=== PATIENT | female | born 1970 | race Two or more races ===

== ENCOUNTER 2018-07-18 13:37 | Emergency (ER) | payer BC ==
[~2018-07-18] VITALS: Ht 182.9 cm; Wt 103.5 kg
[2018-07-18 13:45] VITALS: BP 124/85
--- NOTE | 2018-07-18 13:53 | NUR ---
TASK RN: PT AMBULATORY WITH STEADY GAIT TO ROOM
--- NOTE | 2018-07-18 13:53 | NUR ---
Shilpa franz in [facility] - 07/18/18 at 1353 by KAMERON TASK RN: VALENTE LARIOS T
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
[2018-07-18] MEDS ORDERED: HYDROmorphone 1 MG/ML, 1ML ONE (14:18)
[2018-07-18] MEDS ORDERED: ONDANSETRON 2MG/ML, 2ML ONE (14:18)
--- NOTE | 2018-07-18 14:26 | NUR ---
PT TO MRI, SENT WITH URINE CUP
--- NOTE | 2018-07-18 14:27 | NUR ---
TASK RN: PIV ESTABLISHED. PT TOLERATED WITH NO COMPLICATIONS.
--- NOTE | 2018-07-18 14:28 | NUR ---
TASK RN: BEDSIDE REPORT TO MICHELLE SAUCEDO.
[2018-07-18] MEDS ORDERED: ONDANSETRON 2MG/ML, 2ML IVPush ONE (14:30)
[2018-07-18] MEDS ORDERED: HYDROmorphone 1 MG/ML, 1ML IV ONE (14:30)
[2018-07-18 15:19] LABS: HCG UR SG 1.036 (1.003-1.030); MICROSCOPIC NOT IND
[2018-07-18 15:26] LABS: CULTURE INDICATED? NO
== END 2018-07-18 16:48 | disposition home or self-care (01) ==
LOC: ED 15:42
DX: S39.012A Strain of muscle, fascia and tendon of lower back, initial encounter (principal); G89.11 Acute pain due to trauma; M54.42 Lumbago with sciatica, left side; G43.909 Migraine, unspecified, not intractable, without status migrainosus; R32 Unspecified urinary incontinence; V49.49XA Driver injured in collision with other motor vehicles in traffic accident, initial encounter; Y93.89 Activity, other specified; Y92.89 Other specified places as the place of occurrence of the external cause; Y99.8 Other external cause status
CPT/HCPCS: 71045; 72148; 81003; 81025; 96374; 96375; 99284; J1170; J2405

== ENCOUNTER 2018-09-06 19:58 | Inpatient (IN) | payer BC ==
[~2018-09-06] VITALS: Ht 180.3 cm; Wt 106.8 kg
[2018-09-06] MEDS ORDERED: BACL20TA PO (20:34)
[2018-09-06] MEDS ORDERED: AMIT10TA PO (20:34)
[2018-09-06] MEDS ORDERED: GABA300C10 PO (20:34)
[2018-09-06] MEDS ORDERED: ONDANSETRON 2MG/ML, 2ML IVPush ONE ×2 (21:00→23:00)
[2018-09-06] MEDS ORDERED: ACETAMINOPHEN 500 MG TABLET PO ONE (21:00)
[2018-09-06] MEDS ORDERED: ACETAMINOPHEN 500 MG TABLET ONE (21:02)
[2018-09-06] MEDS ORDERED: ONDANSETRON 2MG/ML, 2ML ONE ×2 (21:02→22:57)
[2018-09-06] MEDS ORDERED: MORPHINE SULFATE 4 MG/ML, 1ML ONE ×2 (21:02→22:58)
[2018-09-06 21:05] LABS: MEAN CORPUSCULAR HEMOGLOBIN 21.7 pg (27.0-34.8); MEAN CORPUSCULAR VOLUME 70.1 fL (80-100); MEAN PLATELET VOLUME 9.9 fL (7.4-10.4); PLATELET COUNT 270 x10^3/uL (130-400); RED BLOOD COUNT 4.43 x10^6/uL (3.82-5.3); RED CELL DISTRIBUTION WIDTH 18.6 % (9.6-15.2)
[2018-09-06] MEDS: MORPHINE SULFATE 4 MG/ML, 1ML IVPush PRN ×2 (21:06→23:00)
[2018-09-06] MEDS ORDERED: NITR100C PO (21:11)
[2018-09-06] MEDS ORDERED: PHEN-583 PO (21:11)
--- NOTE | 2018-09-06 21:16 | NUR ---
PT TO ED FOR LEFT ABD PAIN RAD TO LEFT FLANK WITH HOME TEMP UP TO 103F X4 DAYS. PT HAS HX OR SPINAL INJURY WITH URINARY RETENTION AND INCONTINENCE. CONNECTED TO MONITORS. VSS. EDMD PRESENT FOR EXAM AND ORDERS RECEIVED. IV ESTABLISHED. LABS DRAWN AND SENT. PRE VOID BLADDER SCAN 396ML. POST VOID BLADDER SCAN 195ML. UA COLELCTED VIA CLEAN CATCH AND SENT. PT MEDICATED PER JUL. NEW ORDERS RECEIVED FOR BC X2. LAB AT [facility] AT THIS TIME FOR DRAW. AWAITING CT.
[2018-09-06 21:17] LABS: ALANINE AMINOTRANSFERASE 24 U/L (12-78); ALBUMIN 3.2 g/dL (3.4-5.0); ANION GAP 10 mmol/L (5-15); CALCIUM 8.3 mg/dL (8.5-10.1); CHLORIDE 104 mmol/L (98-107)
[2018-09-06 21:20] LABS: ALKALINE PHOSPHATASE 89 U/L (45-117); BILIRUBIN,TOTAL 0.5 mg/dL (0.2-1.0); CREATININE 0.89 mg/dL (0.55-1.02); TOTAL PROTEIN 7.8 g/dL (6.4-8.2)
[2018-09-06 21:21] LABS: BASOPHILS % (AUTO) 0 % (0-1); EOSINOPHILS # (AUTO) 0.05 x10^3/uL (0-0.4); EOSINOPHILS % (AUTO) 0 % (1-7); LYMPHOCYTES # (AUTO) 0.87 x10^3/uL (1-3.4); LYMPHOCYTES % (AUTO) 5 % (22-44); MD SCAN; MONOCYTES # (AUTO) 1.02 x10^3/uL (0.2-0.8); MONOCYTES % (AUTO) 6 % (2-9); NEUTROPHILS # (AUTO) 15.68 x10^3/uL (1.8-6.8); NEUTROPHILS % (AUTO) 89 % (42-75)
[2018-09-06] MEDS ORDERED: CEFTRIAXONE PMX 2GM/50ML 50 ML IV SCH (21:30)
[2018-09-06 21:36] LABS: MICROSCOPIC INDICATED
[2018-09-06 21:37] LABS: CULTURE INDICATED? YES
--- NOTE | 2018-09-06 21:46 | NUR ---
PT TO CT AT THIS TIME.
[2018-09-06] MEDS ORDERED: CEFTRIAXONE PMX 2GM/50ML 50 ML ONE (21:52)
[2018-09-06] MEDS ORDERED: OMNIPAQUE 350 MG/ML, 100ML BOTTLE ONE (22:08)
--- NOTE | 2018-09-06 22:26 | NUR ---
POC DISCUSSED. VITALS UPDATED. PT RATES HER PAIN 11/18 HOWEVER DECLINES MORPHINE AT THIS TIME. PT AWARE IT IS ORDERED IF SHE NEEDS IT. CALL LIGHT ON LAP.
[2018-09-06] MEDS ORDERED: KETOROLAC 30 MG/1 ML ONE (22:57)
[2018-09-06] MEDS ORDERED: KETOROLAC 30 MG/1 ML IVPush ONE (23:00)
--- NOTE | 2018-09-06 23:07 | NUR ---
PT MEDICATED PER JUL. POC DISCUSSED. PT AGREES TO PLAN FOR ADMISSION. PT GIVEN CUP OF WATER. PT DENIES FURTHER NEEDS AT THIS TIME.
--- NOTE | 2018-09-06 23:15 | NUR ---
[facility] OKAYS ICE CHIPS BUT NOTHING MORE. PT GIVEN ICE CHIPS. POC DISCUSSED. PT DENIES FURTHER NEEDS AT THIS TIME.
[2018-09-07] VITALS (7 sets, daily range): BP systolic 100–123; BP diastolic 55–70
[2018-09-07] MEDS ORDERED: LABETALOL 5MG/ML, 20ML IVPush PRN (00:30)
[2018-09-07] MEDS ORDERED: HYDROmorphone 2 MG/ML, 1ML IVPush PRN (00:30)
[2018-09-07] MEDS ORDERED: POLYETHYLENE GLYCOL 17 GM PACKET PO PRN (00:30)
[2018-09-07] MEDS: LACTATED RINGERS 1,000 ML IV SCH ×3 (00:59→20:51)
[2018-09-07] MEDS: ENOXAPARIN 40 MG/0.4 ML SQ SCH ×2 (00:59→23:09)
[2018-09-07] MEDS: OXYcodone/APAP 5/325MG TABLET PO PRN ×5 (00:59→19:53)
[2018-09-07 05:50] LABS: BASOPHILS % (AUTO) 0 % (0-1); EOSINOPHILS # (AUTO) 0.08 x10^3/uL (0-0.4); EOSINOPHILS % (AUTO) 1 % (1-7); LYMPHOCYTES # (AUTO) 1.61 x10^3/uL (1-3.4); LYMPHOCYTES % (AUTO) 10 % (22-44); MD NO; MEAN CORPUSCULAR HEMOGLOBIN 22.2 pg (27.0-34.8); MEAN CORPUSCULAR HGB CONC 31.3 g/dL (32.4-35.8); MEAN PLATELET VOLUME 10.2 fL (7.4-10.4); MONOCYTES # (AUTO) 0.56 x10^3/uL (0.2-0.8); MONOCYTES % (AUTO) 4 % (2-9); NEUTROPHILS % (AUTO) 86 % (42-75); PLATELET COUNT 232 x10^3/uL (130-400); RED BLOOD COUNT 4.36 x10^6/uL (3.82-5.3); RED CELL DISTRIBUTION WIDTH 18.6 % (9.6-15.2)
[2018-09-07] MEDS: ONDANSETRON 2MG/ML, 2ML IVPush PRN (06:05)
[2018-09-07] MEDS: KETOROLAC 30 MG/1 ML IV PRN ×2 (06:05→18:38)
[2018-09-07 06:08] LABS: ANION GAP 10 mmol/L (5-15); CALCIUM 8.4 mg/dL (8.5-10.1); CHLORIDE 105 mmol/L (98-107)
[2018-09-07 06:11] LABS: CREATININE 0.88 mg/dL (0.55-1.02)
[2018-09-07] MEDS: SENNA/DOCUSATE TABLET PO SCH (08:13)
[2018-09-07] MEDS: ACETAMINOPHEN 325 MG TABLET PO PRN (12:23)
[2018-09-07] MEDS: IBUPROFEN 200 MG TABLET PO PRN (17:29)
[2018-09-07] MEDS ORDERED: SODIUM CHLORIDE 0.9% 1,000ML IVBOLUS ONE (17:30)
[2018-09-07] MEDS: CEFTRIAXONE PMX 2GM/50ML 50 ML IV SCH (22:14)
[2018-09-08] MEDS: IBUPROFEN 200 MG TABLET PO PRN ×2 (01:10→13:11)
[2018-09-08 01:26] VITALS: BP 95/56
[2018-09-08] MEDS: ACETAMINOPHEN 325 MG TABLET PO PRN (02:10)
[2018-09-08] MEDS: ONDANSETRON 2MG/ML, 2ML IVPush PRN (04:34)
[2018-09-08] MEDS: OXYcodone/APAP 5/325MG TABLET PO PRN ×5 (04:34→23:56)
[2018-09-08 07:53] VITALS: BP_SYST 87; BP_SYST 96; BP_DIAS 50; BP_DIAS 60
[2018-09-08 08:48] LABS: BASOPHILS # (AUTO) 0.03 x10^3/uL (0-0.1); BASOPHILS % (AUTO) 0 % (0-1); EOSINOPHILS # (AUTO) 0.08 x10^3/uL (0-0.4); EOSINOPHILS % (AUTO) 1 % (1-7); LYMPHOCYTES # (AUTO) 1.46 x10^3/uL (1-3.4); LYMPHOCYTES % (AUTO) 14 % (22-44); MD NO; MEAN CORPUSCULAR HEMOGLOBIN 21.9 pg (27.0-34.8); MEAN CORPUSCULAR HGB CONC 31.2 g/dL (32.4-35.8); MEAN CORPUSCULAR VOLUME 70.4 fL (80-100); MEAN PLATELET VOLUME 9.8 fL (7.4-10.4); MONOCYTES # (AUTO) 0.69 x10^3/uL (0.2-0.8); MONOCYTES % (AUTO) 7 % (2-9); NEUTROPHILS # (AUTO) 7.93 x10^3/uL (1.8-6.8); NEUTROPHILS % (AUTO) 78 % (42-75); PLATELET COUNT 219 x10^3/uL (130-400); RED BLOOD COUNT 3.72 x10^6/uL (3.82-5.3); RED CELL DISTRIBUTION WIDTH 19.2 % (9.6-15.2)
[2018-09-08] MEDS: SENNA/DOCUSATE TABLET PO SCH (08:52)
[2018-09-08] MEDS: BACLOFEN 10 MG TABLET PO PRN ×2 (08:52→16:31)
[2018-09-08] MEDS: SODIUM CHLORIDE 0.9% 1,000 ML IV SCH ×3 (08:54→23:25)
[2018-09-08 08:55] LABS: ALBUMIN 2.5 g/dL (3.4-5.0); ANION GAP 7 mmol/L (5-15); CALCIUM 8.3 mg/dL (8.5-10.1); CHLORIDE 108 mmol/L (98-107)
[2018-09-08 08:59] LABS: ALANINE AMINOTRANSFERASE 22 U/L (12-78); ALKALINE PHOSPHATASE 98 U/L (45-117); BILIRUBIN,TOTAL 0.2 mg/dL (0.2-1.0); CREATININE 0.77 mg/dL (0.55-1.02); TOTAL PROTEIN 6.5 g/dL (6.4-8.2)
[2018-09-08] MEDS ORDERED: SODIUM CHLORIDE 0.9% 1,000ML IVBOLUS ONE (09:00)
[2018-09-08] MEDS ORDERED: DIPHENHYDRAMINE 50 MG/ML, 1ML IVPush PRN (09:00)
[2018-09-08] MEDS ORDERED: METOCLOPRAMIDE 5 MG/ML, 2ML IVPush PRN (09:00)
[2018-09-08] MEDS: GABAPENTIN 300 MG CAPSULE PO SCH ×3 (10:09→21:13)
[2018-09-08 12:36] VITALS: BP 111/72
[2018-09-08 20:15] VITALS: BP 109/66
[2018-09-08] MEDS: AMITRIPTYLINE 10 MG TABLET PO SCH (21:13)
[2018-09-08] MEDS: CEFTRIAXONE PMX 2GM/50ML 50 ML IV SCH (22:26)
[2018-09-08] MEDS: ENOXAPARIN 40 MG/0.4 ML SQ SCH (22:26)
[2018-09-09 00:44] VITALS: BP 107/66
[2018-09-09 05:24] LABS: BASOPHILS # (AUTO) 0.05 x10^3/uL (0-0.1); BASOPHILS % (AUTO) 1 % (0-1); EOSINOPHILS # (AUTO) 0.14 x10^3/uL (0-0.4); EOSINOPHILS % (AUTO) 2 % (1-7); LYMPHOCYTES # (AUTO) 1.33 x10^3/uL (1-3.4); LYMPHOCYTES % (AUTO) 15 % (22-44); MD NO; MEAN CORPUSCULAR HEMOGLOBIN 21.7 pg (27.0-34.8); MEAN CORPUSCULAR HGB CONC 30.9 g/dL (32.4-35.8); MEAN CORPUSCULAR VOLUME 70.1 fL (80-100); MEAN PLATELET VOLUME 9.7 fL (7.4-10.4); MONOCYTES # (AUTO) 0.66 x10^3/uL (0.2-0.8); MONOCYTES % (AUTO) 8 % (2-9); NEUTROPHILS # (AUTO) 6.56 x10^3/uL (1.8-6.8); NEUTROPHILS % (AUTO) 75 % (42-75); PLATELET COUNT 221 x10^3/uL (130-400); RED BLOOD COUNT 3.64 x10^6/uL (3.82-5.3)
[2018-09-09 05:36] LABS: ALANINE AMINOTRANSFERASE 25 U/L (12-78); ALBUMIN 2.5 g/dL (3.4-5.0); ANION GAP 6 mmol/L (5-15); CALCIUM 7.8 mg/dL (8.5-10.1); CHLORIDE 111 mmol/L (98-107); CREATININE 0.77 mg/dL (0.55-1.02)
[2018-09-09 05:38] LABS: ALKALINE PHOSPHATASE 110 U/L (45-117); BILIRUBIN,TOTAL 0.2 mg/dL (0.2-1.0); TOTAL PROTEIN 6.7 g/dL (6.4-8.2)
[2018-09-09] MEDS: GABAPENTIN 300 MG CAPSULE PO SCH ×4 (06:18→23:30)
[2018-09-09 07:56] VITALS: BP 124/72
[2018-09-09] MEDS ORDERED: POTASSIUM CHLORIDE 20 MEQ TAB.ER.PRT PO ONE (08:30)
[2018-09-09] MEDS: METHOCARBAMOL 500 MG TABLET PO PRN ×2 (09:00→23:52)
[2018-09-09] MEDS: IBUPROFEN 200 MG TABLET PO PRN ×2 (09:00→20:33)
[2018-09-09] MEDS: SENNA/DOCUSATE TABLET PO SCH (09:01)
[2018-09-09] MEDS: SODIUM CHLORIDE 0.9% 1,000 ML IV SCH (09:42)
[2018-09-09] MEDS: OXYcodone/APAP 5/325MG TABLET PO PRN ×2 (11:54→20:33)
[2018-09-09 13:04] VITALS: BP 97/61
[2018-09-09 15:45] LABS: RAPID INFLUENZA A Negative (Negative); RAPID INFLUENZA B Negative (Negative)
[2018-09-09] MEDS: FERROUS GLUCONATE 324 MG TABLET PO SCH (17:04)
[2018-09-09 19:15] VITALS: BP 114/78
[2018-09-09] MEDS: AMITRIPTYLINE 10 MG TABLET PO SCH (23:30)
[2018-09-09] MEDS: CEFTRIAXONE PMX 2GM/50ML 50 ML IV SCH (23:35)
[2018-09-09] MEDS: ENOXAPARIN 40 MG/0.4 ML SQ SCH (23:36)
[2018-09-10 01:20] VITALS: BP 112/71
[2018-09-10 05:58] LABS: ALANINE AMINOTRANSFERASE 26 U/L (12-78); ALBUMIN 2.2 g/dL (3.4-5.0); ANION GAP 8 mmol/L (5-15); CALCIUM 8.1 mg/dL (8.5-10.1); CHLORIDE 113 mmol/L (98-107); CREATININE 0.61 mg/dL (0.55-1.02)
[2018-09-10 06:00] LABS: ALKALINE PHOSPHATASE 93 U/L (45-117); BILIRUBIN,TOTAL 0.3 mg/dL (0.2-1.0)
[2018-09-10 06:01] LABS: MEAN CORPUSCULAR HEMOGLOBIN 21.9 pg (27.0-34.8); MEAN CORPUSCULAR HGB CONC 31.2 g/dL (32.4-35.8); MEAN CORPUSCULAR VOLUME 70.3 fL (80-100); MEAN PLATELET VOLUME 9.6 fL (7.4-10.4); PLATELET COUNT 225 x10^3/uL (130-400); RED BLOOD COUNT 3.16 x10^6/uL (3.82-5.3); RED CELL DISTRIBUTION WIDTH 19.1 % (9.6-15.2)
[2018-09-10] MEDS: OXYcodone/APAP 5/325MG TABLET PO PRN ×4 (06:50→23:12)
[2018-09-10] MEDS: IBUPROFEN 200 MG TABLET PO PRN ×3 (06:51→23:12)
[2018-09-10 06:53] LABS: BASOPHILS # (AUTO) 0.02 x10^3/uL (0-0.1); BASOPHILS % (AUTO) 0 % (0-1); EOSINOPHILS # (AUTO) 0.16 x10^3/uL (0-0.4); EOSINOPHILS % (AUTO) 3 % (1-7); LYMPHOCYTES % (AUTO) 35 % (22-44); MD MORPH REVIEW ONLY; MONOCYTES # (AUTO) 0.45 x10^3/uL (0.2-0.8); MONOCYTES % (AUTO) 8 % (2-9); NEUTROPHILS # (AUTO) 3.14 x10^3/uL (1.8-6.8); NEUTROPHILS % (AUTO) 54 % (42-75)
[2018-09-10 06:54] LABS: ANISOCYTOSIS 1+; MICROCYTOSIS 1+
[2018-09-10 06:55] LABS: <PLATELET ESTIMATE> ADEQUATE; LARGE PLATELETS 1+; OVALOCYTES 1+
[2018-09-10] MEDS: GABAPENTIN 300 MG CAPSULE PO SCH ×4 (08:12→22:01)
[2018-09-10] MEDS: FERROUS GLUCONATE 324 MG TABLET PO SCH ×2 (08:12→17:03)
[2018-09-10] MEDS: SENNA/DOCUSATE TABLET PO SCH (08:13)
[2018-09-10] MEDS ORDERED: HYDR-3653 PO (08:51)
[2018-09-10] MEDS ORDERED: SODIUM CHLORIDE 0.9% 1,000 ML IV SCH (09:00)
[2018-09-10 09:25] VITALS: BP 136/85
[2018-09-10] MEDS: LIDODERM 5% PATCH TD SCH (10:05)
[2018-09-10 11:06] LABS: OCCULT BLOOD NEGATIVE (NEGATIVE)
[2018-09-10 13:43] VITALS: BP 133/88
[2018-09-10] MEDS ORDERED: POTASSIUM CHLORIDE 20 MEQ TAB.ER.PRT PO ONE (18:00)
[2018-09-10 18:43] VITALS: BP 114/73
[2018-09-10] MEDS: AMITRIPTYLINE 10 MG TABLET PO SCH (22:01)
[2018-09-10] MEDS: CEFTRIAXONE PMX 2GM/50ML 50 ML IV SCH (22:04)
[2018-09-10] MEDS: ENOXAPARIN 40 MG/0.4 ML SQ SCH (23:12)
[2018-09-11 02:49] VITALS: BP 108/73
[2018-09-11 05:24] LABS: MEAN CORPUSCULAR HEMOGLOBIN 22.2 pg (27.0-34.8); MEAN CORPUSCULAR HGB CONC 31.5 g/dL (32.4-35.8); MEAN CORPUSCULAR VOLUME 70.3 fL (80-100); MEAN PLATELET VOLUME 9.4 fL (7.4-10.4); PLATELET COUNT 255 x10^3/uL (130-400); RED BLOOD COUNT 3.24 x10^6/uL (3.82-5.3); RED CELL DISTRIBUTION WIDTH 18.8 % (9.6-15.2)
[2018-09-11 05:25] LABS: CHLORIDE 113 mmol/L (98-107)
[2018-09-11 05:39] LABS: ANION GAP 6 mmol/L (5-15); CALCIUM 8.2 mg/dL (8.5-10.1); CREATININE 0.65 mg/dL (0.55-1.02)
[2018-09-11] MEDS: GABAPENTIN 300 MG CAPSULE PO SCH (06:10)
[2018-09-11 06:34] LABS: MD YES
[2018-09-11 06:40] LABS: BANDS%(MANUAL) 3 % (0-7); EOS% (MANUAL) 3 % (1-7); LYMPH#(MANUAL) 2.38 x10^3/uL (1-3.4); LYMPHS% (MANUAL) 35 % (22-44); MONOS% (MANUAL) 3 % (2-9); REACTIVE LYMPHS # (MANUAL) 0.48 x10^3/uL (0-0); REACTIVE LYMPHS % (MANUAL) 7 % (0-0); SEGS% (MANUAL) 47 % (42-75)
[2018-09-11 06:47] LABS: <PLATELET ESTIMATE> ADEQUATE; OTHER CELLS # (MANUAL) 0.14 x10^3/uL (0-0); OTHER CELLS % (MANUAL) 2 % (0-0)
[2018-09-11 06:49] LABS: ANISOCYTOSIS 1+; MICROCYTOSIS 1+
[2018-09-11 06:50] LABS: LARGE PLATELETS 1+; OVALOCYTES 1+
[2018-09-11 07:23] VITALS: BP 128/77
[2018-09-11] MEDS ORDERED: CEFD300C37 PO (07:30)
[2018-09-11] MEDS ORDERED: FERR325T16 PO (07:30)
[2018-09-11] MEDS: SENNA/DOCUSATE TABLET PO SCH (08:31)
[2018-09-11] MEDS: FERROUS GLUCONATE 324 MG TABLET PO SCH (08:31)
[2018-09-11] MEDS: LIDODERM 5% PATCH TD SCH (08:32)
== END 2018-09-11 09:10 | disposition home or self-care (01) | DRG 872 ==
LOC: ED 21:03 → EDIP 23:02 → 4NOR 09-07 00:09 → DCLOUNGE 09-11 08:57
PROVIDERS: ADMIT Family Medicine; ATTEND Family Medicine
DX: A41.51 Sepsis due to Escherichia coli [E. coli] (principal); N10 Acute pyelonephritis; D50.9 Iron deficiency anemia, unspecified; E66.9 Obesity, unspecified; Z68.32 Body mass index [BMI] 32.0-32.9, adult; G43.909 Migraine, unspecified, not intractable, without status migrainosus; G89.21 Chronic pain due to trauma; N30.90 Cystitis, unspecified without hematuria; Z98.1 Arthrodesis status; Z90.49 Acquired absence of other specified parts of digestive tract; Z88.0 Allergy status to penicillin; Z88.8 Allergy status to other drugs, medicaments and biological substances
CPT/HCPCS: 36415; 74177; 80048; 80053; 81001; 82272; 82728; 83540; 83550; 83605; 83690; 84466; 85014; 85018; 85025; 87040; 87077; 87081; 87086; 87186; 87400; 87880; 96365; 96375; 96376; G0378; J0696; J1650; J1885; J2405; Q9967; J7030; J7120